=== PATIENT | female | born 1970 | race Hispanic/Latino ===

== ENCOUNTER 2019-02-04 10:36 | Outpatient (CLI) | payer OTHER ==
--- NOTE | 2019-02-04 14:39 | Mammography Report ---
BILATERAL DIGITAL SCREENING MAMMOGRAM with CAD: 02/04/19 10:36:00 CLINICAL: Routine screening. COMPARISON:08/27/17, 08/16/16 and 06/06/16 FINDINGS: The breasts are heterogeneously dense, which may obscure small masses. An oval circumscribed left upper outer 7 mm mass has become more dense compared to previous exams and requires additional imaging.No architectural distortion or suspicious calcifications.The right breast is negative. IMPRESSION: 7 mm left upper outer mass or cyst requiring further workup. BI-RADS CATEGORY: 0 -- Additional Imaging Evaluation Required RECOMMENDATION: Recall for left spot magnification MLO and CC views and targeted left breast ultrasound. ACR BI-RADS MAMMOGRAPHIC CODES: 0 = Needs additional imaging evaluation; 1 = Negative; 2 = Benign; 3 = Probably benign; 4 = Suspicious; 5 = Malignant; 6 = Known biopsy-proven malignancy COMMENT: 1. Dense breast tissue, i.e., adenosis, fibrocystic changes, etc., may obscure an underlying neoplasm. 2. Approximately 10% of cancers are not detected with mammography. 3. A negative mammography report should not delay biopsy if a clinically suspicious mass is present. COMMENT: Patient follow-up letters are generated via our [employer] application.
== END 2019-02-04 10:37 | disposition home or self-care (01) ==
LOC: SPVWC 10:36
PROVIDERS: ATTEND Obstetrics & Gynecology
DX: Z12.31 Encounter for screening mammogram for malignant neoplasm of breast (principal); I10 Essential (primary) hypertension; Z90.710 Acquired absence of both cervix and uterus
CPT/HCPCS: 77067

== ENCOUNTER 2019-03-10 10:02 | Outpatient (CLI) | payer OTHER ==
--- NOTE | 2019-03-10 11:03 | Mammography Report ---
LEFT DIGITAL DIAGNOSTIC MAMMOGRAM and LEFT BREAST ULTRASOUND: 03/10/19 10:02:00 CLINICAL: Recalled for asymmetry. COMPARISON:02/04/19 screening FINDINGS: ML and spot magnification CC and MLO views were performed. An oval relatively smooth 12 mm mass with peripheral calcifications is identified on all views. Ultrasound of the left breast demonstrates an oval solid isoechoic mass at 2 o'clock 6 cm from the nipple. It measures 7 x 6 x 5 mm and correlates with the mammographic density. IMPRESSION: A benign calcified oil cyst at 2 o'clock 6 cm from the nipple. No suspicious finding. BI-RADS CATEGORY: 2 - - Benign RECOMMENDATION: Routine mammographic screening in one year. COMMENT: 1. Dense breast tissue, i.e., adenosis, fibrocystic changes, etc., may obscure an underlying neoplasm. 2. Approximately 10% of cancers are not detected with mammography. 3. A negative mammography report should not delay biopsy if a clinically suspicious mass is present. COMMENT: Patient follow-up letters are generated via our [employer] application.
== END 2019-03-10 10:03 | disposition home or self-care (01) ==
LOC: SPVWC 10:02
PROVIDERS: ATTEND Obstetrics & Gynecology
DX: N60.02 Solitary cyst of left breast (principal); I10 Essential (primary) hypertension; Z90.710 Acquired absence of both cervix and uterus

== ENCOUNTER 2020-02-09 08:11 | Outpatient (CLI) | payer BC ==
--- NOTE | 2020-02-09 09:54 | Mammography Report ---
DIGITAL SCREENING MAMMOGRAM WITH CAD, 02/09/2020 INDICATION: Routine screening mammography. TECHNIQUE: Digital bilateral 2D mammography was obtained in the craniocaudal and mediolateral obliq ue projections. This examination was interpreted with the benefit of Computer-Aided Detection analysi s. COMPARISON: 02/04/2019, 08/27/2017 FINDINGS: Breast Density: The breasts are heterogeneously dense, which may obscure small masses. There is no evidence of dominant mass, suspicious calcifications or architectural distortion in eithe r breast. Calcified oil cyst in the upper outer quadrant of the left breast is unchanged. IMPRESSION: Follow up recommendation: Routine yearly BI-RADS Category 2: Benign. A "normal" or negative report should not discourage follow up or biopsy of a clinically significant f inding. A written summary of these findings will be mailed to the patient. The patient will be entered into a mammography reporting system which will generate a reminder letter for the patient's next appointmen t at the appropriate interval. The [employer] recommends yearly mammograms starting at age 40 and continuing as l aditi as a woman is in good health. Breast MRI is recommended for women with an approximate 20-25% or greater lifetime risk of breast cancer, including women with a strong family history of breast or ova charles cancer or who have been treated for Hodgkin's disease. Signer Name: Barry Soto MD Signed: 02/09/2020 9:50 AM Workstation Name: [id number]
== END 2020-02-09 08:12 | disposition home or self-care (01) ==
LOC: SPVWC 08:11
PROVIDERS: ATTEND Obstetrics & Gynecology
DX: Z12.31 Encounter for screening mammogram for malignant neoplasm of breast (principal)
CPT/HCPCS: 77067